=== PATIENT | female | born 1990 | race Caucasian/White ===

== ENCOUNTER 2016-10-27 09:41 | Emergency (ER) | payer OTHER ==
[2016-10-27] MEDS ORDERED: Famotidine IV* 10 MG/ML 2 ML (20 mg) IV SLOW PU ONE (10:15)
[2016-10-27] MEDS ORDERED: Lidocaine 2% VISCOUS* 15 ML UDC PO ONE (10:15)
[2016-10-27] MEDS ORDERED: Al Hydrox/Mg Hydrox/Simet LIQ* 30 ML UDC PO ONE (10:15)
--- NOTE | 2016-10-27 10:24 | ED ---
Abdominal Pain/Female - HPI Summary HPI Summary: Patient is an otherwise healthy 26 yo F with a history of hypothyroidism who presents from [facility] with CC of restrosternal chest discomfort x 3 days. Pain is described as a burning/aching in the restrosternal chest, often radiating to the back, worse with sitting up, better with laying down. The pain does not radiate to the jaw or arms. Pain dissipates immediately after eating and returns 1 hour after eating. Hx includes heart murmur, but denies other cardiac history. Denies family history of heart problems. She has had GERD symptoms while , but states this feels different. Previously, the feeling was a burning in the throat. This burning is not located in the esophagus/throat and feels it deeper into the "abdomen." She notes to burping frequently and describes the burps as "sulfur." Denies diaphoresis, worse pain with activity. She has tried to take aleve without relief. Denies fevers, sweats or chills. Denies vomiting, nausea, diarrhea. Denies recent infections, illness, cough, runny nose or other feelings of malaise. - History of Current Complaint Chief Complaint: EDAbdPain Stated Complaint: ABD PAIN Time Seen by Provider: 10/27/16 09:49 Hx Obtained From: Patient Hx Last Menstrual Period: nov 28 ?: No Onset/Duration: Sudden Onset Timing: Minutes Severity Initially: Moderate Severity Currently: Moderate Pain Intensity: 8 Pain Scale Used: 0-10 Numeric Location: Epigastric - restrosternal Radiates: Yes Radiates to: Back Character: Burning, Cramping Aggravating Factor(s): Nothing Alleviating Factor(s): Other: - food Associated Signs and Symptoms: Negative: Fever, Chest Pain, Constipation, Urinary Symptoms, Decreased Appetite - Risk Factors Ectopic Risk Factor: Negative Ovarian Torsion Risk Factor: Reproductive Age Allergies/Adverse Reactions: Allergies Allergy/AdvReac Type Severity Reaction Status Date / Time No Known Allergies Allergy Verified 02/07/14 14:32 PMH/Surg Hx/FS Hx/Imm Hx Previously Healthy: Yes Endocrine/Hematology History: Reports: Hx Thyroid Disease Denies: Hx Diabetes Cardiovascular History: Denies: Hx Hypertension Respiratory History: Denies: Hx Asthma, Hx Chronic Obstructive Pulmonary Disease (COPD) GI History: Denies: Hx Ulcer - Surgical History Surgery Procedure, Year, and Place: fractured cervical 6 and 7; wisdom teeth Infectious Disease History: No Infectious Disease History: Denies: Hx Clostridium Difficile, Hx Hepatitis, Hx Human Immunodeficiency Virus (HIV), Hx of Known/Suspected MRSA, Hx Shingles, Hx Tuberculosis, Hx Known/ Suspected VRE, Hx Known/Suspected VRSA, History Other Infectious Disease, Traveled Outside the [place] in Last 30 Days - Family History Known Family History: Positive: Other - Breast cancer - aunts - Social History Occupation: Employed Full-time Lives: With Family Alcohol Use: Occasionally Hx Substance Use: No Substance Use Type: Reports: None Hx Tobacco Use: No Smoking Status (MU): Never Smoked Tobacco Review of Systems - ROS Summary Review of Systems Summary: Constitutional: The patient denies fever, 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 HEENT: Head: The patient denies headaches or dizziness. Eyes: The patient denies diplopia, blurry vision, eye pain, eye discharge, photophobia. Throat: The patient denies sore throats or hoarseness. Cardiovascular: The patient endorses retrosternal chest pain better with eating and recumbent position and worse with orthostasis. Denies palpitations , syncope, night cramps, or orthostasis. Respiratory: The patient denies cough, sputum production, hemoptysis, dyspnea, wheezing. Gastrointestinal: The patient denies odynophagia, dysphagia, hematemesis, melenemesis. Epigastric/retrosternal pain, denies nausea or vomiting. Denies constipation or diarrhea. Genitourinary: Patient denies dysuria, hematuria, or pyuria. Patient denies back pain. Denies vaginal discharge, vaginal bleeding. Denies other urinary symptoms. Endocrine: The patient denies polydipsia, polyuria, or polyphagia. Muscles: The patient denies myalgia, strain or weakness. Joints: The patient denies arthralgia and/or arthritis. Neurologic: The patient denies headache, loss of consciousness, or seizure. Dermatologic: The patient denies hyperpigmentation, rash, or photosensitivity. Constitutional: Negative Negative: Fever, Chills, Fatigue Eyes: Negative Negative: Sore Throat, Nasal Discharge Positive: Chest Pain. Negative: Palpitations Negative: Shortness Of Breath, Cough Positive: Abdominal Pain - restrosternal chest pain Positive: no symptoms reported, see HPI Skin: Negative Neurological: Negative All Other Systems Reviewed And Are Negative: Yes Physical Exam - Summary Physical Exam Summary: Appearance: WDW, comfortable, pleasant, alert Skin: Soft dry skin, no lesions. Nailbeds pink with no cyanosis or clubbing. No petechia noted. Eyes: AMPARO, EOMI, Conjunctiva pink with no redness or exudates. Mouth: Dentition without lesions. Moist mucosa Neck: Full range of motion. Palpable thyroid. Trachea at midline. No lymphadenopathy. Pulm: Chest symmetrical expansion. No deformities on posterior chest wall. Lungs clear to auscultation and percussion, without adventitious sounds. CV: No JVD. No deformities on anterior chest wall. Heart soundsRRR, Normal S1 and single S2. No S3, S4, rubs, or murmurs. Carotids 2+ bilaterally without bruits. . Abd: Nontender in all 4 quadrants. Soft abdomen. Negative murphys, negative Rovsings, pain on palpation of the epigastric area. No CVA tenderness bilaterally. Bowel sounds present. exam not performed Musculoskeletal: Flexion and extension of neck limited d/t pain. Brudzynski and Kernig sign negative. No deformities noted. Pulses full and equal. Neuro: Motor strength is 5/5 in upper and lower extremities bilaterally. A&OX3 Psych: Logical, coherent Triage Information Reviewed: Yes Vital Signs On Initial Exam: Initial Vitals Temp Pulse Resp BP Pulse Ox 98.4 F 79 16 130/85 100 10/27/16 09:45 10/27/16 09:45 10/27/16 09:45 10/27/16 09:45 10/27/16 09:45 Vital Signs Reviewed: Yes Appearance: Positive: Well-Appearing, Well-Nourished Skin: Positive: Warm, Skin Color Reflects Adequate Perfusion Eyes: Positive: EOMI, AMPARO, Conjunctiva Clear Neck: Positive: Supple, No Lymphadenopathy Respiratory/Lung Sounds: Positive: Clear to Auscultation, Breath Sounds Present Cardiovascular: Positive: Normal, RRR, Pulses are Symmetrical in both Upper and Lower Extremities Abdomen Description: Positive: Nontender, Soft Musculoskeletal: Positive: Normal, Strength/ROM Intact Neurological: Positive: Sensory/Motor Intact, Alert, Oriented to Person Place, Time, Speech Normal - Shona Coma Scale Coma Scale Total: 15 Diagnostics - Vital Signs Vital Signs Temp Pulse Resp BP Pulse Ox 10/27/16 10:00 68 20 99 10/27/16 09:54 76 99 10/27/16 09:53 123/77 10/27/16 09:45 98.4 F 79 16 130/85 100 - Laboratory Result Diagrams: 10/27/16 10:20 10/27/16 10:20 Lab Statement: Any lab studies that have been ordered have been reviewed, and results considered in the medical decision making process. Abdominal Pain Fem Course/Dx - Course Course Of Treatment: Patient worked up for cardiac pathology. Chest xray: Labs :WNL. EKG: NSR. Trop: 0.00. Considered cardiac pathology and this ruled out effectively d/t negative chest xray, trop and normal EKG. Symptoms resolved with GI cocktail given in the ED of Pepcid 40mg IV, Maalox plus and lidocaine 2 % PO. Patient is given omeprazole 40mg daily prescription and GI follow up. D /t symptoms, likely duodenal ulcer based on age and alleviation of symptoms with PO intake. Not tested today for helicobacter pylori as literature states first episode treated with 1 month trial of PPI's. She will follow up with GI. Referral given. She is given return precautions for any cardiac symptoms including diaphoresis, pain in the chest, pain radiating to the arm or jaw or worse with activity. Medications were reveiwed with patient. Encouarged to follow up with PCP or return to ED for worsening symptoms. Return precautions given. Patient understands and agrees with plan. Ok for discharge. - Diagnoses Differential Diagnosis: Positive: Pancreatitis, Peptic Ulcer Disease Provider Diagnoses: Duodenal ulcer Discharge - Discharge Plan Condition: Stable Disposition: HOME Prescriptions: Omeprazole 40 mg PO DAILY #30 cap Patient Education Materials: Peptic Ulcer (ED), Gastritis (ED) Referrals: No Primary Care Phys,NOPCP [Primary Care Provider] - Eleazar Weaver MD [Medical Doctor] - Additional Instructions: Take Maalox Plus over the counter for breakthrough pain Omeprazole 40mg daily until follow up with GI Do not take NSAIDS - this includes aleve, naproxen, ibuprofen
[2016-10-27 10:32] LABS: Hematocrit 38 % (35-47); Hemoglobin 13.2 g/dl (12.0-16.0); Mean Corpuscular HGB Conc 35 g/dl (31-36); Mean Corpuscular Hemoglobin 31 pg (27-31); Mean Corpuscular Volume 90 fL (80-97); Mean Platelet Volume 8 um3 (7.4-10.4); Red Blood Count 4.26 10^6/ul (4.0-5.4); Red Cell Distribution Width 13 % (10.5-15); White Blood Count 7.5 10^3/ul (3.5-10.8)
[2016-10-27 10:41] VITALS: BP 111/83
[2016-10-27 10:44] LABS: ALT 9 U/L (7-52); AST 14 U/L (13-39); Albumin 4.1 g/dL (3.2-5.2); Alkaline Phosphatase 62 U/L (34-104); Anion Gap 5 mmol/L (2-11); BUN/Creatinine Ratio 19.7 (8-20); Blood Urea Nitrogen 14 mg/dL (6-24); CO2 Carbon Dioxide 26 mmol/L (22-32); Calcium 9.2 mg/dL (8.6-10.3); Chloride 106 mmol/L (101-111); Creatine Kinase 109 U/L (10-223); EGFR African American 130.1 (>60); EGFR Non-African American 101.1 (>60); Globulin 2.5 g/dL (2-4); Glucose 100 mg/dL (70-100); Magnesium 2.1 mg/dL (1.9-2.7); Potassium 3.9 mmol/L (3.5-5.0); Sodium 137 mmol/L (133-145); Total Protein 6.6 g/dL (6.4-8.9)
--- NOTE | 2016-10-27 10:59 | RAD ---
Indication: Midsternal chest discomfort. Coarse voice. General illness. Cough. Comparison: March 10, 2009 CT. Technique: Upright AP 1023 hours Report: Clear lungs and pleural spaces. Negative for pneumothorax. The heart, pulmonary vasculature, and mediastinal contours are unremarkable. Anterior fusion hardware at the cervical thoracic junction. IMPRESSION: No evidence for acute intrathoracic disease.
[2016-10-27 11:24] LABS: T4 8.18 mcg/mL (6.09-12.23)
[2016-10-27 11:25] LABS: TSH (Thyroid Stimulating Horm) 3.59 mcIU/mL (0.34-5.60)
== END 2016-10-27 11:55 | disposition home or self-care (01) ==
LOC: ED 09:41
DX: K26.9 Duodenal ulcer, unspecified as acute or chronic, without hemorrhage or perforation (principal)
CPT/HCPCS: 36415; 71010; 80053; 82550; 82553; 83605; 83735; 84436; 84443; 84484; 84702; 85025; 93005; 96374; 99283; A9270-GY

== ENCOUNTER 2018-11-17 17:12 | Emergency (ER) | payer BC, OTHER ==
[2018-11-17 17:24] VITALS: BP 113/72
--- NOTE | 2018-11-17 18:28 | UC ---
Respiratory Complaint HPI - HPI Summary HPI Summary: 2 WEEKS OF COUGH AND CONGESTION, FEVER AND WHEEZE. WENT TO [facility] 4 DAYS AGO AND WAS DIAGNOSED CLINICALLY WITH PNEUMONIA AND TREATED WITH A Z- MARY. STATES HER COUGH SEEMS TO BE IMPROVING AND OVERALL SHE IS FEELING SLIGHTLY BETTER HOWEVER TODAY HAD A TEMPERATURE OF 100 SO WAS CONCERNED AND CAME IN FOR A RECHECK. - History of Current Complaint Chief Complaint: UCRespiratory Stated Complaint: URI Time Seen by Provider: 11/17/18 17:20 Hx Obtained From: Patient Hx Last Menstrual Period: 2.5 weeks ago Onset/Duration: Gradual Onset, Lasting Weeks, Still Present Timing: Constant Severity Initially: Moderate Severity Currently: Moderate Pain Intensity: 3 Pain Scale Used: 0-10 Numeric Character: Cough: Nonproductive Aggravating Factors: Nothing Alleviating Factors: Nothing Associated Signs And Symptoms: Positive: Fever, URI, Nasal Congestion. Negative : Dyspnea, Pleuritic Chest Pain, Wheezing, Hemoptysis - Allergies/Home Medications Allergies/Adverse Reactions: Allergies Allergy/AdvReac Type Severity Reaction Status Date / Time azithromycin Allergy Rash Verified 11/17/18 17:17 Home Medications: Home Medications Azithromycin 250 mg PO DAILY 11/17/18 [History Confirmed 11/17/18] Ibuprofen 400 mg PO Q6HR PRN 11/17/18 [History Confirmed 11/17/18] PMH/Surg Hx/FS Hx/Imm Hx Endocrine History: Thyroid Disease - Surgical History Surgical History: Yes Surgery Procedure, Year, and Place: fractured cervical 6 and 7 with plate ; wisdom teeth - Family History Known Family History: Positive: Other - Breast cancer - aunts - Social History Alcohol Use: Weekly Substance Use Type: Marijuana Substance Use Comment - Amount & Last Used: weekends Smoking Status (MU): Never Smoked Tobacco - Immunization History Most Recent Influenza Vaccination: unsure Most Recent Tetanus Shot: 06/25/12 Most Recent Pneumonia Vaccination: unsure Review of Systems All Other Systems Reviewed And Are Negative: Yes Constitutional: Positive: Fever, Fatigue ENT: Positive: Nasal Discharge Respiratory: Positive: Cough. Negative: Shortness Of Breath Cardiovascular: Positive: Negative Gastrointestinal: Positive: Negative Physical Exam Triage Information Reviewed: Yes Appearance: Well-Appearing, No Pain Distress, Well-Nourished Vital Signs: Initial Vital Signs Temp 99.0 F 11/17/18 17: Pulse 80 11/17/18 17:19 Resp 18 11/17/18 17:19 BP 113/72 11/17/18 17:19 Pulse Ox 100 11/17/18 17:19 Vital Signs Reviewed: Yes Eyes: Positive: Conjunctiva Clear ENT: Positive: Hearing grossly normal, Pharynx normal, TMs normal Neck: Positive: Supple, Nontender, No Lymphadenopathy Respiratory Exam: Normal Cardiovascular Exam: Normal Abdomen Description: Positive: Soft Musculoskeletal: Positive: No Edema Neurological: Positive: Alert Psychological: Positive: Age Appropriate Behavior Skin: Negative: Rashes Diagnostics - Radiology CXR Radiology Interpretation Completed By: Radiologist Summary of Radiographic Findings: No acute cardiopulmonary process by radiograph. Respiratory Course/Dx - Course Course Of Treatment: PATIENT ADMITS THAT OVERALL SHE IS FEELING BETTER AND HER COUGH IS IMPROVED HOWEVER HAD ELEVATED TEMPERATURE TODAY OF 100 SO WAS CONCERNED. CHEST X-RAY OBTAINED AND UNREMARKABLE. ADVISED TO COMPLETE HER AZITHROMYCIN. REST, HYDRATE , OTC AFRIN FOR NASAL CONGESTION. FOLLOW-UP IF SYMPTOMS DO NOT CONTINUE TO IMPROVE OVER THE NEXT WEEK OR SO. - Differential Dx/Diagnosis Provider Diagnosis: Acute bronchitis Discharge ED - Sign-Out/Discharge Documenting (check all that apply): Patient Departure All imaging exams completed and their final reports reviewed: Yes - Discharge Plan Condition: Stable Disposition: HOME Patient Education Materials: Acute Bronchitis (ED) Forms: *Work Release Referrals: Nik Slater MD [Primary Care Provider] - (KEEP YOUR APPT SCHEDULED) Additional Instructions: XRAY TODAY UNREMARKABLE. CONTINUE YOUR ANTIBIOTICS TO COMPLETE THE COURSE PRESCRIBED. CONSIDER THAT YOUR SYMPTOMS MAY BE VIRALLY MEDIATED AND MAY TAKE MORE TIME TO RESOLVE. REST, HYDRATE, OTC MEDS NEEDED. USE OTC AFRIN FOR NASAL CONGESTION. 2 SPRAYS IN EACH NOSTRIL TWICE DAILY NEEDED. DO NOT USE FOR MORE THAN 3-4 DAYS IN A ROW TO PREVENT DEVELOPING REBOUND CONGESTION. - Billing Disposition and Condition Condition: STABLE Disposition: Home
== END 2018-11-17 18:39 | disposition home or self-care (01) ==
LOC: UCEAST 17:12
DX: J20.9 Acute bronchitis, unspecified (principal); Z88.1 Allergy status to other antibiotic agents
CPT/HCPCS: 71046; 99211; G0463